=== PATIENT | female | born 1975 | race Caucasian/White ===

== ENCOUNTER 2020-02-25 22:01 | Emergency (ER) | payer MEDICAID ==
[~2020-02-25] VITALS: Ht 162.6 cm; Wt 54.5 kg
[2020-02-25] MEDS ORDERED: KETOROLAC 30 MG/1 ML ONE (23:24)
[2020-02-25] MEDS ORDERED: KETOROLAC 30 MG/1 ML IM ONE (23:30)
[2020-02-25 23:36] VITALS: BP 109/67
== END 2020-02-26 00:05 | disposition other institution (70) ==
LOC: ED 23:01
DX: S70.01XA Contusion of right hip, initial encounter (principal); S70.11XA Contusion of right thigh, initial encounter; M54.5 Low back pain; F17.210 Nicotine dependence, cigarettes, uncomplicated; V80.010A Animal-rider injured by fall from or being thrown from horse in noncollision accident, initial encounter; Y93.89 Activity, other specified; Y92.89 Other specified places as the place of occurrence of the external cause; Y99.8 Other external cause status
CPT/HCPCS: 72110; 73502; 96372; 99284; J1885